=== PATIENT | female | born 1945 | race Caucasian/White ===

== ENCOUNTER 2017-05-26 15:01 | Inpatient (IN) | payer MEDICARE ==
[2017-05-26] MEDS ORDERED: Polyethylene Glycol 3350 17 GM Packet PO PRN (16:59)
[2017-05-26] MEDS ORDERED: Acetaminophen 500 MG TAB PO PRN (17:00)
[2017-05-26] MEDS: Docusate 100 MG CAP PO SCH (20:14)
[2017-05-26] MEDS: Vit A,C & E/Lutein/Minerals Tablet PO SCH (20:15)
[2017-05-26] MEDS: HYDROcodone/Acetaminophen 10/325 mg Tablet PO PRN (20:15)
[2017-05-26] MEDS: Aspirin 81 mg Enteric Coated Tablet PO SCH (20:15)
[2017-05-26] MEDS: Lactinex Tablet PO SCH (20:15)
[2017-05-26] MEDS: CALCIUM CARBONATE PO SCH (20:18)
--- NOTE | 2017-05-27 00:07 | HP ---
DATE OF ADMISSION: 05/26/2017 CHIEF COMPLAINT: Status post right total knee replacement for physical therapy. BRIEF HISTORY: This is a pleasant 71-year-old overweight female who was admitted to [facility] on 05/23/2017, by Dr. Lopez for right total knee replacement. She apparently has had prior arthroscopic meniscectomy and debridement in both knees, but has been having progressivel y worsening pain with ambulation. She underwent the procedure without any issues and then has been transferred here for physical therapy. She states that she is having some pain, but the hydrocodone is helping. She also is constipated and has not had a bowel movement since last Tuesday. She den ies any other concerns. No chest pain or shortness of breath. No fever or chills. PAST MEDICAL HISTORY: 1. Hypertension. 2. Chronic recurrent urinary tract infection on prophylactic Keflex. 3. Degenerative joint disease. 4. Obesity. 5. Gastroesophageal reflux disease. PAST SURGICAL HISTORY: 1. Recent right total knee replacement. 2. History of bilateral knee arthroscopy and meniscectomy. ALLERGIES: She is allergic to FLAGYL, LEVAQUIN, MACROBID, SULFA, and HIBICLENS. FAMILY HISTORY: Noncontributory to current admission. PSYCHOSOCIAL HISTORY: No documented tobacco, alcohol, or IV drug abuse. MEDICATIONS: She has been transferred here with the following medications: Tylenol 500 mg every 6 hours p.r.n., [place] 5/325 one to two tablets every 6 hours p.r.n., Norvasc 5 mg daily, Ecotrin 81 b. i.d., Keflex 250 mg daily, Colace 100 mg b.i.d., lisinopril 10 mg daily, MiraLax 17 grams in 8 ounce s of water daily. REVIEW OF SYSTEMS: Cardiovascular System: Denies any chest pain, shortness of breath, palpitations , paroxysmal nocturnal dyspnea, orthopnea, pedal edema. Respiratory System: Denies any chronic cou gh, expectoration, or pleuritic-type chest pain. Gastrointestinal System: Denies any nausea, vomit ing, diarrhea, constipation, hematemesis, melena, or hematochezia. Genitourinary System: Denies an y frequency, urgency, dysuria, or hematuria. Central Nervous System: No focal numbness, weakness, or fainting spells. SHEENT: No difficult speech, vision, hearing, or swallowing. She normally has 5 to 6 bowel movements, but since the surgery, she has not had one. PHYSICAL EXAMINATION: GENERAL: This is a pleasant 71-year-old female, resting comfortably, in no acute distress . Her spouse is in the room. VITAL SIGNS: She is afebrile, heart rate 81, respirations 20, oxygen saturation is 93%, blood press ure 127/56. HEENT: Normocephalic, atraumatic. Pupils are equal and reactive to light and accommodation. NECK: No JVD, thyromegaly, cervical adenopathy, throat exudates, or carotid bruits. CARDIOVASCULAR: S1 and S2 plus, rate and rhythm regular. RESPIRATORY SYSTEM: Normal vesicular breath sounds heard in all lung carballo. ABDOMEN: Soft, nontender, obese. Bowel sounds heard in all quadrants. EXTREMITIES: Without cyanosis or clubbing, knee immobilizer over the right leg, right knee incision with dressing. There is some minimal erythema, just 1+ edema to the right leg. Peripheral pulses are palpable. CENTRAL NERVOUS SYSTEM: Grossly nonfocal. LABORATORY VALUES: Last hemoglobin and hematocrit were 11.1 and 34.3 on 05/24/2017. IMPRESSION: 1. Degenerative joint disease, status post right total knee replacement. 2. Hypertension. 3. Chronic urinary tract infection. 4. Constipation. 5. Obesity. 6. Gastroesophageal reflux disease. PLAN: 1. Continue current medications. 2. Heart healthy diet. 3. Aspirin 81 b.i.d. for deep venous thrombosis prophylaxis per discharge summary. 4. Consult PT, OT. 5. Check CBC, BMP in the morning. 6. MiraLax 17 grams in 8 ounces of water for constipation. 7. Start Colace 100 mg b.i.d. 8. Asked therapy sent orders for therapy to check with Dr. Lopez to see how long he wants her to us e the knee immobilizer. 9. Asked nursing to provide her with a bedside commode. 10. Discussed with the patient and spouse in detail and all questions answered. Dr. Guaman covering for me from this evening until Tuesday night.
[2017-05-27] MEDS: HYDROcodone/Acetaminophen 10/325 mg Tablet PO PRN ×4 (02:09→20:22)
[2017-05-27 05:58] LABS: Anion Gap 11 mmol/L (10-20); BUN (Urea Nitrogen) 15 mg/dL (9.8-20.1); Calc. Creatinine Clearance 81 mL/min (70-130); Calcium 8.8 mg/dL (7.8-10.44); Carbon Dioxide 27 mmol/L (23-31); Chloride 104 mmol/L (98-107); Estimated GFR-MDRD 59; Glucose 102 mg/dL (83-110); Potassium 4.9 mmol/L (3.5-5.1); Sodium 137 mmol/L (136-145)
[2017-05-27 06:11] LABS: Band 27 % (5-11); Eosinophils 2 % (0-10); Lymphocytes 9 % (21-51); MDiff Complete? YES; Mean Corpuscular HGB CONC 32.1 g/dL (32.0-36.0); Mean Corpuscular Volume 93.4 fl (81.0-99.0); Mean Platelet Volume 8.7 fL (7.4-10.4); Metamyelocyte 2 % (0-0); Monocytes 6 % (0-10); Neutrophil 54 % (42-75); PLT Morphology Comment Appears Adequate; Platelet Count 210 thou/uL (130-400); RBC Distribution Width 14.5 % (11.5-14.5); RBC Morphology Normal; Red Blood Cell (RBC) Count 3.01 mill/uL (4.20-5.40); White Blood Cell (WBC) Count 9.5 thou/uL (4.8-10.8)
[2017-05-27] MEDS: Aspirin 81 mg Enteric Coated Tablet PO SCH ×2 (08:21→20:22)
[2017-05-27] MEDS: Cephalexin 250 MG CAP PO SCH (08:21)
[2017-05-27] MEDS: Docusate 100 MG CAP PO SCH ×2 (08:21→20:22)
[2017-05-27] MEDS: Lisinopril 10 MG TAB PO SCH (08:21)
[2017-05-27] MEDS: Meloxicam 7.5 MG TAB PO SCH (08:22)
[2017-05-27] MEDS: Multivitamin W/ Minerals 1 TAB PO SCH (08:22)
--- NOTE | 2017-05-27 10:07 | PRG ---
DATE OF SERVICE: 05/27/2017 SUBJECTIVE: Ms. Parra is doing well. Denies any complaints, resting comfortably. Her pain is we ll controlled with the hydrocodone 5 and 10 based upon her pain scale. She did have a small bowel m ovement and the MiraLax seems to be helping. No other concerns or questions. OBJECTIVE: VITAL SIGNS: She is afebrile. Heart rate 82, respirations 18, oxygen saturation 94%, blood pressur e 136/60. CARDIOVASCULAR: S1, S2 plus. RESPIRATORY: Normal vesicular breath sounds. ABDOMEN: Soft, nontender, bowel sounds heard in all quadrants. EXTREMITIES: Without cyanosis or clubbing. Right knee incision with dressing, mild erythema and mi ld swelling. LABORATORY VALUES: White count is 9.5, H\T\H is 9 and 28.1. Sodium 137, potassium 4.9, BUN and cre atinine is 15 and 0.93. IMPRESSION: 1. Degenerative joint disease status post right total knee replacement. 2. Hypertension, well controlled. 3. Chronic recurrent urinary tract infection on prophylactic Keflex. 4. Obesity. 5. Gastroesophageal reflux disease. 6. Improving constipation. PLAN: 1. Continue current medications. 2. Bowel regimen. 3. Nutritional support. 4. DVT prophylaxis with aspirin per discharge recommendations. 5. Incision care. 6. Therapy to check with orthopedics about her knee immobilizer and the duration. 7. Decubitus precautions. 8. Low sodium diet. 9. Dr. Guaman pest control worker this weekend. All questions answered.
[2017-05-27 11:57] VITALS: BMI 36.4
[2017-05-27] MEDS: Vit A,C & E/Lutein/Minerals Tablet PO SCH (20:22)
[2017-05-27] MEDS: Lactinex Tablet PO SCH (20:22)
[2017-05-27] MEDS: CALCIUM CARBONATE PO SCH (20:23)
[2017-05-28] MEDS: HYDROcodone/Acetaminophen 10/325 mg Tablet PO PRN ×4 (02:40→20:26)
[2017-05-28] MEDS: Cephalexin 250 MG CAP PO SCH (08:36)
[2017-05-28] MEDS: Aspirin 81 mg Enteric Coated Tablet PO SCH ×2 (08:36→20:26)
[2017-05-28] MEDS: Meloxicam 7.5 MG TAB PO SCH (08:37)
[2017-05-28] MEDS: Multivitamin W/ Minerals 1 TAB PO SCH (08:37)
[2017-05-28] MEDS: Lisinopril 10 MG TAB PO SCH (08:37)
[2017-05-28] MEDS: Docusate 100 MG CAP PO SCH ×2 (09:04→20:26)
--- NOTE | 2017-05-28 11:07 | PRG ---
DATE OF SERVICE: 05/28/[address] Tim Hoff. SUBJECTIVE: The patient feels well, lying in bed resting, still having some pain in her knee, but i s standing up and walking to the bathroom. She did have a good bowel movement yesterday, and feels much better. She has been unable to; however, flex her knee without significant pain. Therapy has told her that they may not be available this weekend because of inclement weather and we will stress to her the need to continue to walk. OBJECTIVE: VITAL SIGNS: Shows blood pressure is 133/63, temperature 98, pulse 81, respirations 18, O2 saturati on is 95%. LUNGS: Clear. CARDIAC EXAMINATION: Shows regular rhythm. EXTREMITIES: Right knee is swollen, but with no erythema or warmth and a healing incision. The pat ient is only able to flex 10 degrees. ASSESSMENT: 1. Stable status post right total knee with controlled pain with [place]. 2. Stable hypertension. 3. Chronic urinary tract infection on prophylactic Keflex with no evidence for recurrence. PLAN: 1. Continue stress physical therapy. 2. Continue pain relief as constipation is stable and resolved. 3. Continue DVT prophylaxis on aspirin per recommendation of Orthopedics. 4. Continue to monitor for signs of infection, not evident at this time.
[2017-05-28] MEDS: Lactinex Tablet PO SCH (20:26)
[2017-05-28] MEDS: Vit A,C & E/Lutein/Minerals Tablet PO SCH (20:26)
[2017-05-28] MEDS: CALCIUM CARBONATE PO SCH (20:26)
[2017-05-29] MEDS: HYDROcodone/Acetaminophen 10/325 mg Tablet PO PRN ×3 (03:43→18:26)
[2017-05-29] MEDS ORDERED: Diphenoxylate HCl/Atropine Tablet PO PRN (07:22)
--- NOTE | 2017-05-29 07:45 | PRG ---
DATE OF SERVICE: 05/29/2017 SUBJECTIVE: The patient complaining of recurrent diarrhea and also increased swelling in her leg, h aving persistent pain in her right leg, but did sleep well last night with no shortness of breath or chest pain. OBJECTIVE: VITAL SIGNS: Shows her blood pressure 152/69, temperature 97, pulse 88, respirations 20, O2 sats 99 %. LUNGS: Clear. SKIN and EXTREMITIES: Does show 2+ edema. Knee appears to be healing well with no erythema, warmth or tenderness. ABDOMEN: Soft and nontender. ASSESSMENT: 1. New onset of diarrhea. The patient on antibiotics post right total knee as well as probiotics. We will check for Clostridium difficile, started on Lomotil. 2. Hypertension, well controlled, but with increased edema. We will start on Lasix 40 mg a day for the next 2 days and monitor response. 3. Right total knee appeared to be healing well with therapy to start again tomorrow up with assist ance to the bathroom. PLAN: Lasix 40 mg daily for the next 2 days and base met profile in the a.m. C. diff screen now an d base met profile in the a.m. Dr. Tim Hoff will be back tomorrow.
[2017-05-29] MEDS: Furosemide 40 MG TAB PO SCH (08:33)
[2017-05-29] MEDS: Aspirin 81 mg Enteric Coated Tablet PO SCH ×2 (08:34→21:09)
[2017-05-29] MEDS: Cephalexin 250 MG CAP PO SCH (08:34)
[2017-05-29] MEDS: Docusate 100 MG CAP PO SCH ×2 (08:34→21:09)
[2017-05-29] MEDS: Lisinopril 10 MG TAB PO SCH (08:34)
[2017-05-29] MEDS: Meloxicam 7.5 MG TAB PO SCH (08:35)
[2017-05-29] MEDS: Multivitamin W/ Minerals 1 TAB PO SCH (08:35)
[2017-05-29] MEDS: Vit A,C & E/Lutein/Minerals Tablet PO SCH (21:09)
[2017-05-29] MEDS: Lactinex Tablet PO SCH (21:09)
[2017-05-29] MEDS: CALCIUM CARBONATE PO SCH (21:09)
[2017-05-30] MEDS: HYDROcodone/Acetaminophen 5/325 mg Tablet PO PRN (00:26)
[2017-05-30] MEDS: HYDROcodone/Acetaminophen 10/325 mg Tablet PO PRN ×3 (06:23→18:31)
[2017-05-30 07:20] LABS: Anion Gap 13 mmol/L (10-20); BUN (Urea Nitrogen) 12 mg/dL (9.8-20.1); Calc. Creatinine Clearance 88 mL/min (70-130); Calcium 8.5 mg/dL (7.8-10.44); Carbon Dioxide 25 mmol/L (23-31); Chloride 105 mmol/L (98-107); Estimated GFR-MDRD 66; Glucose 87 mg/dL (83-110); Potassium 3.8 mmol/L (3.5-5.1); Sodium 139 mmol/L (136-145)
[2017-05-30] MEDS: Furosemide 40 MG TAB PO SCH (07:40)
[2017-05-30] MEDS: Cephalexin 250 MG CAP PO SCH (08:45)
[2017-05-30] MEDS: Aspirin 81 mg Enteric Coated Tablet PO SCH ×2 (08:45→20:04)
[2017-05-30] MEDS: Meloxicam 7.5 MG TAB PO SCH (08:46)
[2017-05-30] MEDS: Docusate 100 MG CAP PO SCH ×2 (08:46→20:05)
[2017-05-30] MEDS: Lisinopril 10 MG TAB PO SCH (08:46)
[2017-05-30] MEDS: Multivitamin W/ Minerals 1 TAB PO SCH (08:46)
--- NOTE | 2017-05-30 13:16 | PRG ---
DATE OF SERVICE: 05/30/2017 SUBJECTIVE: Ms. Parra is doing well. Denies any complaints, resting comfortably, tolerating her therapy. Pain is mostly controlled. She was wondering what she needs to do to be able to go home a nd I advised her that will be discussed with her tomorrow at case conference. Briefly, she needs to be able to do the things she normally does at home including taking care of her activities of daily living and then if she has any stairs or if she has any particular unique factors in her home that she needs to be able to cope with. She stated that she does have a bed rise, she needs stools to ge t on a step stool and then get on it and those are some of the things that therapy will need to work and make sure she is able to do. OBJECTIVE: VITAL SIGNS: She is afebrile, heart rate 68, respirations 18, oxygen saturation is 94%, blood press ure 147/62. CARDIOVASCULAR: S1, S2 plus. RESPIRATORY: Normal breath sounds. ABDOMEN: Soft, nontender, bowel sounds heard in all quadrants. EXTREMITIES: Without cyanosis or clubbing. IMPRESSION: 1. Status post right total knee replacement. 2. Hypertension, well controlled. 3. Chronic recurrent urinary tract infection on prophylactic Keflex. 4. Gastroesophageal reflux disease. 5. Obesity. PLAN: 1. Continue current medications. 2. Nutritional support. 3. Deep venous thrombosis prophylaxis. 4. Decubitus precautions. 5. Incision care. 6. Low sodium diet. 7. Routine laboratory values.
[2017-05-30] MEDS: Vit A,C & E/Lutein/Minerals Tablet PO SCH (20:04)
[2017-05-30] MEDS: CALCIUM CARBONATE PO SCH (20:04)
[2017-05-30] MEDS: Lactinex Tablet PO SCH (20:04)
[2017-05-30] MEDS: metroNIDAZOLE 500 MG TAB PO SCH (22:32)
[2017-05-31] MEDS: Vancomycin HCl 125 MG Capsule PO SCH ×5 (00:28→23:56)
[2017-05-31] MEDS: HYDROcodone/Acetaminophen 5/325 mg Tablet PO PRN (00:28)
[2017-05-31] MEDS: HYDROcodone/Acetaminophen 10/325 mg Tablet PO PRN ×3 (06:13→20:47)
[2017-05-31] MEDS: metroNIDAZOLE 500 MG TAB PO SCH ×2 (06:14→06:16)
[2017-05-31] MEDS: Aspirin 81 mg Enteric Coated Tablet PO SCH ×2 (08:32→20:47)
[2017-05-31] MEDS: Docusate 100 MG CAP PO SCH ×2 (08:33→20:47)
[2017-05-31] MEDS: Lisinopril 10 MG TAB PO SCH (08:33)
[2017-05-31] MEDS: Cephalexin 250 MG CAP PO SCH (08:33)
[2017-05-31] MEDS: Meloxicam 7.5 MG TAB PO SCH (08:34)
[2017-05-31] MEDS: Multivitamin W/ Minerals 1 TAB PO SCH (08:34)
--- NOTE | 2017-05-31 12:06 | PRG ---
DATE OF SERVICE: 05/31/2017 HISTORY: Ms. Parra is doing well. Denies any complaints. Her spouse is in the room. Surprising ly her stool for C. diff came back positive for both antigen and toxin. She states that she gets on and off diarrhea for the last few months, but she was told that since she apparently had radiation that she use will have radiation proctitis and diarrhea. She denies any fever or chills. The only antibiotic she is aware of is the Keflex she takes daily. I advised her and her spouse that at this point continuing Keflex is not a good idea. Initially she was started on Flagyl, but she is appare ntly allergic to it, so she is on vancomycin oral. She is being put on contact isolation and the pl an is to start doing stool for C. diff in about 7 days' time and then to it for 3 days until it is n egative. She is to follow with Dr. Davies to figure out another way of treating her chronic recurrent UTI. Her Florastor has been increased to b.i.d. She denies any other concerns or questio ns. OBJECTIVE: VITAL SIGNS: She is afebrile, heart rate is 74, respirations 20, oxygen saturation 97%, blood press ure 147/62. CARDIOVASCULAR: S1, S2 plus. RESPIRATORY: Normal vesicular breath sounds. ABDOMEN: Soft, obese, nontender, bowel sounds heard in all quadrants. EXTREMITIES: Without cyanosis or clubbing. Right knee incision with dressing. LABORATORY VALUES: Yesterday sodium 139, potassium 3.8, BUN and creatinine 12 and 1.85. IMPRESSION: 1. Status post right total knee replacement. 2. Clostridium difficile colitis, Clostridium difficile positivity. 3. Chronic recurrent urinary tract infection. 4. Gastroesophageal reflux disease. 5. Degenerative joint disease. 6. Hypertension. 7. Obesity. PLAN: 1. Continue vancomycin 125 mg q.6 h. for 10 days. 2. Contact isolation. 3. Recheck CBC and BMP in the morning. 4. Stop Keflex. 5. Florastor to b.i.d. 6. Continue incision care. 7. Nutritional support. 8. Physical therapy. 9. DVT and stress ulcer prophylaxis. 10. Decubitus precautions. 11. Discussed with the patient and spouse in detail and all questions answered.
[2017-05-31] MEDS: Lactinex Tablet PO SCH (20:47)
[2017-05-31] MEDS: Vit A,C & E/Lutein/Minerals Tablet PO SCH (20:47)
[2017-05-31] MEDS: CALCIUM CARBONATE PO SCH (20:47)
[2017-06-01] MEDS: HYDROcodone/Acetaminophen 10/325 mg Tablet PO PRN ×4 (05:39→23:32)
[2017-06-01] MEDS: Vancomycin HCl 125 MG Capsule PO SCH ×4 (05:39→23:32)
[2017-06-01 05:47] LABS: Anion Gap 11 mmol/L (10-20); BUN (Urea Nitrogen) 15 mg/dL (9.8-20.1); Calc. Creatinine Clearance 76 mL/min (70-130); Calcium 8.7 mg/dL (7.8-10.44); Carbon Dioxide 26 mmol/L (23-31); Chloride 104 mmol/L (98-107); Estimated GFR-MDRD 56; Glucose 92 mg/dL (83-110); Potassium 4.4 mmol/L (3.5-5.1); Sodium 137 mmol/L (136-145)
[2017-06-01 06:20] LABS: Band 25 % (5-11); Eosinophils 1 % (0-10); Hemoglobin 9.9 g/dL (12.0-16.0); Lymphocytes 11 % (21-51); MDiff Complete? YES; Mean Corpuscular HGB CONC 31.7 g/dL (32.0-36.0); Mean Corpuscular Hemoglobin 29.6 pg (27.0-31.0); Mean Corpuscular Volume 93.3 fl (81.0-99.0); Metamyelocyte 9 % (0-0); Monocytes 12 % (0-10); Neutrophil 42 % (42-75); PLT Morphology Comment Appears Adequate; Platelet Count 355 thou/uL (130-400); RBC Distribution Width 13.8 % (11.5-14.5); RBC Morphology Normal; Red Blood Cell (RBC) Count 3.35 mill/uL (4.20-5.40)
[2017-06-01] MEDS: Docusate 100 MG CAP PO SCH ×2 (08:48→20:33)
[2017-06-01] MEDS: Lisinopril 10 MG TAB PO SCH (08:48)
[2017-06-01] MEDS: Meloxicam 7.5 MG TAB PO SCH (08:49)
[2017-06-01] MEDS: Lactinex Tablet PO SCH ×2 (08:49→20:33)
[2017-06-01] MEDS: Aspirin 81 mg Enteric Coated Tablet PO SCH ×2 (08:49→20:33)
[2017-06-01] MEDS: Multivitamin W/ Minerals 1 TAB PO SCH (08:49)
[2017-06-01] MEDS: Vit A,C & E/Lutein/Minerals Tablet PO SCH (20:33)
[2017-06-01] MEDS: CALCIUM CARBONATE PO SCH (20:35)
[2017-06-02] MEDS: HYDROcodone/Acetaminophen 10/325 mg Tablet PO PRN ×3 (05:56→17:53)
[2017-06-02] MEDS: Vancomycin HCl 125 MG Capsule PO SCH ×3 (05:56→17:54)
[2017-06-02] MEDS: Multivitamin W/ Minerals 1 TAB PO SCH (09:04)
[2017-06-02] MEDS: Lisinopril 10 MG TAB PO SCH (09:04)
[2017-06-02] MEDS: Meloxicam 7.5 MG TAB PO SCH (09:05)
[2017-06-02] MEDS: Lactinex Tablet PO SCH ×2 (09:05→21:25)
[2017-06-02] MEDS: Aspirin 81 mg Enteric Coated Tablet PO SCH ×2 (09:05→21:25)
[2017-06-02] MEDS: Docusate 100 MG CAP PO SCH ×2 (09:05→21:25)
--- NOTE | 2017-06-02 14:41 | PRG ---
DATE OF SERVICE: 06/02/2017 SUBJECTIVE: Ms. Parra is doing well. Denies any complaints, resting comfortably, diarrhea is rar e. She has noticed some pain in her right leg, radiating from her back to her leg. No weakness. N o bowel or bladder incontinence other than what is common for her which is occasional sudden bowel m ovement where she cannot get to the bathroom in time. OBJECTIVE: VITAL SIGNS: She is afebrile, heart rate is 77, respirations 20, oxygen saturation is 94%, and bloo d pressure 149/72. CARDIOVASCULAR SYSTEM: S1, S2 plus. RESPIRATORY SYSTEM: Normal vesicular breath sounds. ABDOMEN: Soft, nontender, bowel sounds heard in all quadrants. EXTREMITIES: Without cyanosis or clubbing. Right knee incision with dressing. Tattoo is present. IMPRESSION: 1. Clostridium difficile colitis. 2. Status post right total knee replacement. 3. Chronic recurrent urinary tract infection, now off Keflex. 4. Gastroesophageal reflux disease. 5. Degenerative joint disease. 6. Hypertension, well controlled. PLAN: 1. Continue current medications. 2. Nutritional support. 3. Monitor right leg pain for now, continue [place]. 4. DVT prophylaxis. 5. Decubitus precautions. 6. Stress ulcer prophylaxis. 7. Routine laboratory values. No family at the bedside.
[2017-06-02] MEDS: CALCIUM CARBONATE PO SCH (21:26)
[2017-06-02] MEDS: Vit A,C & E/Lutein/Minerals Tablet PO SCH (21:26)
[2017-06-03] MEDS: Vancomycin HCl 125 MG Capsule PO SCH ×5 (00:04→23:48)
[2017-06-03] MEDS: HYDROcodone/Acetaminophen 10/325 mg Tablet PO PRN ×5 (00:04→23:48)
[2017-06-03] MEDS: Lisinopril 10 MG TAB PO SCH (08:32)
[2017-06-03] MEDS: Multivitamin W/ Minerals 1 TAB PO SCH (08:32)
[2017-06-03] MEDS: Meloxicam 7.5 MG TAB PO SCH (08:32)
[2017-06-03] MEDS: Lactinex Tablet PO SCH ×2 (08:32→20:35)
[2017-06-03] MEDS: Aspirin 81 mg Enteric Coated Tablet PO SCH ×2 (08:32→20:35)
[2017-06-03] MEDS: Docusate 100 MG CAP PO SCH ×2 (08:32→20:35)
[2017-06-03] MEDS: CALCIUM CARBONATE PO SCH (20:35)
[2017-06-03] MEDS: Vit A,C & E/Lutein/Minerals Tablet PO SCH (20:35)
[2017-06-04] MEDS: Vancomycin HCl 125 MG Capsule PO SCH ×4 (05:54→23:56)
[2017-06-04] MEDS: HYDROcodone/Acetaminophen 10/325 mg Tablet PO PRN ×3 (05:58→18:10)
[2017-06-04] MEDS: Aspirin 81 mg Enteric Coated Tablet PO SCH ×2 (08:23→21:06)
[2017-06-04] MEDS: Lactinex Tablet PO SCH ×2 (08:24→21:06)
[2017-06-04] MEDS: Docusate 100 MG CAP PO SCH ×2 (08:24→21:07)
[2017-06-04] MEDS: Meloxicam 7.5 MG TAB PO SCH (08:24)
[2017-06-04] MEDS: Multivitamin W/ Minerals 1 TAB PO SCH (08:25)
[2017-06-04] MEDS: Lisinopril 10 MG TAB PO SCH (08:25)
--- NOTE | 2017-06-04 18:30 | PRG ---
DATE OF SERVICE: 06/04/2017 SUBJECTIVE: Ms. Parra is doing well. Denies any complaints, resting comfortably, still having di arrhea, but it is better. Stool test shows antigen positive, but toxin negative. OBJECTIVE: VITAL SIGNS: She is afebrile, heart rate 79, respirations 20, oxygen saturation 96%, blood pressure is 118/64. CARDIOVASCULAR: S1, S2 plus. RESPIRATORY: Normal vesicular breath sounds. ABDOMEN: Soft, nontender, bowel sounds heard in all quadrants. EXTREMITIES: Without cyanosis or clubbing. IMPRESSION: 1. Status post right total knee replacement. 2. Resolving Clostridium difficile colitis. 3. Chronic recurrent urinary tract infection. 4. Gastroesophageal reflux disease. 5. Degenerative joint disease. 6. Hypertension, well controlled. PLAN: 1. Continue current medications. 2. Nutritional support. 3. Deep venous thrombosis prophylaxis. 4. Decubitus precautions. 5. Contact isolation. 6. Continue monitoring C. diff daily.
[2017-06-04] MEDS: Vit A,C & E/Lutein/Minerals Tablet PO SCH (21:06)
[2017-06-04] MEDS: CALCIUM CARBONATE PO SCH (21:08)
[2017-06-05] MEDS: HYDROcodone/Acetaminophen 10/325 mg Tablet PO PRN ×2 (00:05→06:09)
[2017-06-05] MEDS: Vancomycin HCl 125 MG Capsule PO SCH ×3 (06:09→18:13)
[2017-06-05] MEDS: Docusate 100 MG CAP PO SCH ×2 (08:31→20:47)
[2017-06-05] MEDS: Lisinopril 10 MG TAB PO SCH (08:31)
[2017-06-05] MEDS: Meloxicam 7.5 MG TAB PO SCH (08:31)
[2017-06-05] MEDS: Lactinex Tablet PO SCH ×2 (08:31→20:46)
[2017-06-05] MEDS: Aspirin 81 mg Enteric Coated Tablet PO SCH ×2 (08:31→20:45)
[2017-06-05] MEDS: Multivitamin W/ Minerals 1 TAB PO SCH (08:32)
[2017-06-05] MEDS: HYDROcodone/Acetaminophen 5/325 mg Tablet PO PRN ×2 (12:35→18:13)
--- NOTE | 2017-06-05 15:03 | PRG ---
DATE OF SERVICE: 06/05/2017 SUBJECTIVE: Ms. Parra is doing well. Denies any complaints, resting comfortably. She is slowly, but surely getting stronger. Her diarrhea is much improved. OBJECTIVE: VITAL SIGNS: She is afebrile, heart rate 73, respiratory rate 18, and blood pressure 145/65. CARDIOVASCULAR: S1, S2 plus. RESPIRATORY: Normal vesicular breath sounds. ABDOMEN: Soft, nontender, bowel sounds heard in all quadrants. EXTREMITIES: Without cyanosis or clubbing. IMPRESSION: 1. Clostridium difficile colitis. 2. Status post right total knee replacement. 3. Chronic recurrent urinary tract infection. 4. Gastroesophageal reflux disease. 5. Degenerative joint disease. 6. Hypertension, well controlled. PLAN: 1. Continue current medications. 2. Nutritional support. 3. Contact isolation. 4. Await repeat stool for C. diff. 5. Deep venous thrombosis prophylaxis. 6. Decubitus precautions. 7. Routine laboratory values.
[2017-06-05] MEDS: Vit A,C & E/Lutein/Minerals Tablet PO SCH (20:45)
[2017-06-05] MEDS: CALCIUM CARBONATE PO SCH (20:47)
[2017-06-06] MEDS: Vancomycin HCl 125 MG Capsule PO SCH ×3 (00:08→12:08)
[2017-06-06] MEDS: HYDROcodone/Acetaminophen 5/325 mg Tablet PO PRN ×3 (00:08→12:08)
[2017-06-06 09:15] VITALS: BP 141/63; TEMP 97.6
[2017-06-06] MEDS: Lactinex Tablet PO SCH (09:17)
[2017-06-06] MEDS: Docusate 100 MG CAP PO SCH (09:17)
[2017-06-06] MEDS: Aspirin 81 mg Enteric Coated Tablet PO SCH (09:17)
[2017-06-06] MEDS: Lisinopril 10 MG TAB PO SCH (09:17)
[2017-06-06] MEDS: Multivitamin W/ Minerals 1 TAB PO SCH (09:18)
[2017-06-06] MEDS: Meloxicam 7.5 MG TAB PO SCH (09:18)
--- NOTE | 2017-06-06 22:33 | DIS ---
DATE OF ADMISSION: 05/26/2017 DATE OF DISCHARGE: 06/06/2017 PRINCIPAL DIAGNOSIS: Status post right total knee replacement. SECONDARY DIAGNOSES: 1. Clostridium difficile colitis, resolving. 2. Hypertension, well controlled. 3. Chronic recurrent urinary tract infection. She has been taken off her prophylactic Keflex. 4. Degenerative joint disease. 5. Obesity. 6. Gastroesophageal reflux disease. 7. Questionable history of radiation proctitis. COMPLICATIONS: None. ADVERSE REACTIONS: None. PROCEDURES: None. CONSULTATIONS: None. HOSPITAL COURSE: The patient was admitted on 05/26/2017 after undergoing right total knee replaceme nt for therapy. She was doing well, but she was also having some diarrhea. C. diff screen was done which was positive. She was placed on contact isolation and started on vancomycin, since she is al lergic to FLAGYL. Her daily Keflex was stopped due to the C. diff. She has improved and her diarrh ea has pretty much resolved. Repeat stool test shows antigen positive, but toxin negative x2. I ad vised her to finish the whole 10 days worth of vancomycin and if for some reason her diarrhea recur, she is to follow up with her primary care physician. She has been instructed on contact isolation at home and the use of bleach and personal hygiene measures. From the therapy standpoint, they have deemed her safe to go home. She has daughter, who is a hospice nurse, who is going to be with her. She has an appointment with Dr. Lopez who is going to arrange for home health. PHYSICAL EXAMINATION: VITAL SIGNS: On the day of discharge, she is afebrile, heart rate is 80, respirations 18, blood pre ssure 141/63, oxygen saturation is 96%. CARDIOVASCULAR: S1, S2 plus. RESPIRATORY: Normal vesicular breath sounds. ABDOMEN: Soft, obese, nontender, bowel sounds heard in all quadrants. EXTREMITIES: Without cyanosis or clubbing. Right knee incision is healthy. Bilateral JOSIAH hose is present. LABORATORY VALUES: On the day of discharge, the last one we have is from the 30th, sodium 137, pota ssium 4.4, BUN and creatinine is 15 and 0.97. White count is 8, H and H is 9.9 and 31.2. DISCHARGE MEDICATIONS: Tylenol 500 mg q.6 hours p.r.n., [place] 5/325 q.6 hours p.r.n., Floranex 1 ta blet b.i.d., Norvasc 5 mg daily, Ecotrin 81 mg b.i.d., Lomotil one tablet q.6 hours p.r.n., Zestril 10 mg daily, Meloxicam 15 mg daily, omeprazole 40 mg daily, vancomycin 125 mg q.6 hours routine for 3 more days DISCHARGE INSTRUCTIONS: She is to call me with any questions or concerns. She is to follow with Dr Jagdeep Arora who is her PCP in 3-5 days. She has an appointment with Dr. Lopez tomorrow. Heart healthy diet. Orthopedic precautions. Discussed with the patient in detail. Prescription for vancomycin has been sent and if her pharmacy is able to fill it, she will be discharged today; if not, then she will stay here until pharmacy can get it taken care of. Total time spent on this discharge 35 minutes.
== END 2017-06-06 17:11 | disposition home health service (06) | DRG 560 ==
LOC: NAV ACUTE 15:01
PROVIDERS: ADMIT Internal Medicine; ATTEND Internal Medicine
DX: Z47.1 Aftercare following joint replacement surgery (principal); A04.7 Enterocolitis due to Clostridium difficile; N39.0 Urinary tract infection, site not specified; Z96.651 Presence of right artificial knee joint; M19.90 Unspecified osteoarthritis, unspecified site; E66.9 Obesity, unspecified; K21.9 Gastro-esophageal reflux disease without esophagitis; K62.7 Radiation proctitis; I10 Essential (primary) hypertension; Z79.2 Long term (current) use of antibiotics; K59.00 Constipation, unspecified; Z85.42 Personal history of malignant neoplasm of other parts of uterus; M17.32 Unilateral post-traumatic osteoarthritis, left knee; Z68.36 Body mass index [BMI] 36.0-36.9, adult
CPT/HCPCS: 80048; 85025; 87070; 87205; 87324; 87449